=== PATIENT | female | born 1985 | race Hispanic/Latino ===

== ENCOUNTER → 2023-10-30 | Outpatient (CLI) | payer BC | END | disposition home or self-care (01) | LOC: RAH 12:46 | PROVIDERS: ATTEND Surgery | DX: D17.0 Benign lipomatous neoplasm of skin and subcutaneous tissue of head, face and neck (principal) | CPT/HCPCS: 70490 ==

== ENCOUNTER → 2023-11-25 | Outpatient (CLI) | payer BC ==
[~2023-11-25] MED LIST: GADOTERATE MEGLUMINE 10 MMOL/20 ML VIAL IV ONE
== END | disposition home or self-care (01) ==
LOC: RAH 14:48
PROVIDERS: ATTEND Surgery
DX: D17.1 Benign lipomatous neoplasm of skin and subcutaneous tissue of trunk (principal); M50.31 Other cervical disc degeneration, high cervical region; M47.812 Spondylosis without myelopathy or radiculopathy, cervical region
CPT/HCPCS: 70543; A9575

== ENCOUNTER → 2025-02-01 | Outpatient (CLI) | payer BC ==
[~2025-02-01] MED LIST changes: -GADOTERATE MEGLUMINE 10 MMOL/20 ML VIAL IV ONE; +LEVO25TA54 PO
== END | disposition home or self-care (01) ==
LOC: RAH 15:07
PROVIDERS: ATTEND Family Medicine
DX: Z12.31 Encounter for screening mammogram for malignant neoplasm of breast (principal)
CPT/HCPCS: 77067